=== PATIENT | male | born 1965 | race Caucasian/White ===

== ENCOUNTER → 2016-05-03 | Outpatient (CLI) | payer OTHER ==
[~2016-05-03] MED LIST: CEPH-331 PO; KETO10TA55 PO
--- NOTE | 2016-05-03 13:14 | Diagnostic Imaging Report ---
INDICATION: Low back pain, fall. COMPARISON: None. FINDINGS: Three views of the lumbar spine demonstrate normal alignment. Diffuse osteopenia is present. There is a T11 and questionable L3 compression fracture of uncertain age. No osseous lesion identified. SI joints are symmetric. IMPRESSION: T11 compression fracture, questionable compression fracture of L3. Recommend MRI for further evaluation. Dictated by: Dictated on workstation # [id number]
== END ==
LOC: RAD 11:21
PROVIDERS: ATTEND Nurse Practitioner Family
DX: M54.5 Low back pain (principal); S22.088A Other fracture of T11-T12 vertebra, initial encounter for closed fracture; W19.XXXA Unspecified fall, initial encounter
CPT/HCPCS: 72100

== ENCOUNTER → 2016-05-09 | Outpatient (CLI) | payer OTHER ==
--- NOTE | 2016-05-09 12:17 | Diagnostic Imaging Report ---
INDICATION: Pre-MRI screening. COMPARISON: CT orbits from 09/04/2013. FINDINGS AND IMPRESSION: No periorbital radiopaque foreign body. Dictated by: Dictated on workstation # [id number]
--- NOTE | 2016-05-09 13:12 | Diagnostic Imaging Report ---
PROCEDURE: MRI lumbar spine. TECHNIQUE: Multiplanar, multisequence MRI of the lumbar spine was performed without contrast. INDICATION: Compression fracture. COMPARISON: Lumbar spine radiographs of 05/03/2016. FINDINGS: There are five lumbar-type vertebral bodies with small riblets at T12. Normal alignment. There is a compression deformity of the superior endplate of L3 resulting in approximately 20% height loss. There is edema throughout the L3 vertebral body, consistent with acute or subacute fracture. Remaining vertebral body heights are maintained. Bone marrow signal is otherwise unremarkable. No abnormal signal in the conus which terminates at T12-L1. Normal configuration of the cauda equina without evidence of arachnoiditis. Lzoo-zg-ktjszyor degenerative endplate changes throughout the remaining lumbar spine. These result in no high-grade spinal canal, lateral recess, or neuroforaminal narrowing. Mild scattered degenerative facet arthropathy. The paravertebral soft tissues are unremarkable. IMPRESSION: 1. Htakl-ox-kequmops compression fracture of the superior endplate of L3 results in approximately 20% height loss. No other fractures in the lumbar spine. 2. Llhv-tb-ucaytadw spondylotic changes result in no high-grade neural impingement. Dictated by: Dictated on workstation # [id number]
--- NOTE | 2016-05-09 13:27 | Diagnostic Imaging Report ---
EXAM: MRI of the thoracic spine without contrast. DATE: May 09, 2016. INDICATION: A 51-year-old male, compression fracture. COMPARISON: Lumbar spine radiographs, May 03, 2016. TECHNIQUE: Multiple noncontrast MRI sequences of the thoracic spine were obtained. FINDINGS: There is a compression deformity of the T11 vertebral body with roughly 50% height loss. There is no visualized fracture line or associated marrow edema. This is consistent with a remote prior compression deformity. There is no retropulsed fracture fragment. There are multiple lower thoracic and upper lumbar Schmorl's nodes. There is no identified acute compression fracture of the thoracic spine. At T6-T7, there is a small left paracentral disc protrusion without associated spinal stenosis. There is no spinal stenosis at the thoracic spine levels. There is no abnormal signal within the visualized portions of the spinal cord. IMPRESSION: 1. Remote prior T11 vertebral body compression deformity with approximately 50% height loss and no retropulsed fracture fragment. 2. No acute compression fracture of the thoracic spine. 3. Small left paracentral disc protrusion at T6-T7 without spinal stenosis. No spinal stenosis at the thoracic spine levels. No abnormal cord signal. Dictated by: Dictated on workstation # [id number]
== END ==
LOC: RAD 11:13
PROVIDERS: ATTEND Nurse Practitioner Family
DX: M48.56XA Collapsed vertebra, not elsewhere classified, lumbar region, initial encounter for fracture (principal); M48.54XA Collapsed vertebra, not elsewhere classified, thoracic region, initial encounter for fracture; Z77.018 Contact with and (suspected) exposure to other hazardous metals
CPT/HCPCS: 70140; 72146; 72148